=== PATIENT | female | born 2000 | race Caucasian/White ===

== ENCOUNTER 2022-12-29 13:06 | Emergency (ER) | payer SELFPAY ==
[2022-12-29 13:51] VITALS: BP 143/86; RESP 18; BMI 21.7
[2022-12-29] MEDS ORDERED: SODIUM CHLORIDE 1,000 ML IV STA (14:14)
[2022-12-29 15:48] LABS: BASO % 0.4 % (0-2.0); EOS % 2.2 % (0-4.5); HEMATOCRIT 41.9 % (32.4-45.2); HEMOGLOBIN 13.9 GM/dL (10.7-15.3); LYMPH % 18.4 % (8-40); MCH 29.4 pg (25.7-33.7); MCHC 33.1 g/dl (32.0-36.0); MEAN CELL VOLUME 88.8 fl (80-96); MONO % 7.1 % (3.8-10.2); NEUT % 71.9 % (42.8-82.8); PLATELET COUNT 462 10^3/uL (134-434); RBC 4.72 M/mm3 (3.60-5.2); RDW 13.3 % (11.6-15.6); WHITE BLOOD COUNT 11.8 K/mm3 (4.0-10.0)
[2022-12-29 16:01] LABS: INR 1.14 (0.83-1.09); PROTHROMBIN TIME (PATIENT) 13.2 SEC (9.7-13.0)
[2022-12-29 16:03] LABS: ACTIVATED PTT 33.1 SECONDS (25.2-36.5)
[2022-12-29 18:18] VITALS: PULSE 82; TEMP 97.5
[2022-12-29 18:49] LABS: HCG,QUALITATIVE URINE Negative
[2022-12-29 18:56] LABS: EPI CELLS >36 /uL (0-25.1); HYALINE CASTS 4 /uL (0-3.1); PH,URINE 5.5 (5.0-8.0); URINE APPEARANCE CLOUDY; URINE BACTERIA 3436 /uL (0-1359); URINE BILIRUBIN NEGATIVE (NEGATIVE); URINE COLOR YELLOW; URINE GLUCOSE (UA) NEGATIVE (NEGATIVE); URINE KETONE NEGATIVE (NEGATIVE); URINE LEUK ESTERASE TRACE (NEGATIVE); URINE NITRITE NEGATIVE (NEGATIVE); URINE PROTEIN NEGATIVE (NEGATIVE); URINE UROBILINOGEN 0.2 mg/dL (0.2-1.0); URINE WBC 86 /uL (0-25.8)
[2022-12-29 19:03] LABS: URINE RBC 19.3 /uL (0-23.9)
== END 2022-12-29 18:20 | disposition home or self-care (01) ==
LOC: JER 13:06
DX: N93.9 Abnormal uterine and vaginal bleeding, unspecified (principal)
CPT/HCPCS: 36415; 76830-TC; 81003; 84703; 85025; 85610; 85730; 86850; 86900; 86901; 99284-25